=== PATIENT | male | born 1990 | race Caucasian/White ===

== ENCOUNTER 2017-07-04 11:24 | Inpatient (IN) | payer BC, OTHER ==
[~2017-07-04] VITALS: Ht 182.9 cm; Wt 68.0 kg
[2017-07-04 11:40] VITALS: BP 134/81
--- NOTE | 2017-07-04 11:40 | NUR ---
Pre-admission Note: Client is seen in intake at this time. Alert and oriented x 4. Verbally responsive. Able to make his needs known. Affect is flat. Appears anxious with frequent body shifting. Complains of 8/10 abdominal cramps with muscle aches related to withdrawal. Patient states "I feel sick." Re-assurance provided. Patient education provided regarding the admission process. Patient verbalized good understanding. Patient is able to provide consent regarding the admission process. Denies any allergies. Denies any seizure history. He reports that he is here to detox off of heroin and methamphetamine. He denies having a PCP and is currently homeless. Will continue with the admission process when the patient is up in the unit. VS: Temp 98.1 Pulse 110 RR 18 BP 134/81 PL 8/10 O2 sat 98% RA COWS 16
--- NOTE | 2017-07-04 12:10 | NUR ---
Admission Note: Admitted a 26 year old male for opiate/methamphetamine dependence under the care of Dr. Flo Campbell. Patient states that he is voluntarily here to detox off of heroin and methamphetamine. He is alert and verbally responsive. Oriented x 4. No changes in LOC compared to the last time patient was seen. Appears anxious with congruent affect. Respirations even and unlabored. No SOB noted. Lung sounds clear upon auscultation. Runny nose noted r/t withdrawal symptoms. Skin warm and moist to touch. BUE tremors felt and observed. Body search done by male TRACK SERVICE PERSON. No contraband was found. Skin check done. Noted with bilateral forearm trackmarks and lesions due to skin picking. Abdomen soft and non-distended. BS (+) in all 4 quadrants. No complains of diarrhea or constipation noted. LBM 07/04/2017. Noted with complains of 8/10 abdominal cramping and nausea. No emesis noted. Bladder non-distended. Voids independently. Able to provide urine for UDS. Ambulatory ad janes with steady gait. Patient denies any seizure history. Denies any medical hx. NKA. Wishes to be FULL CODE. Follows a regular diet at home. Patient reports that he is currently unemployed and homeless. Denies having a PCP. When asked when his longest period of sobriety is, patient states "I never had one." He reports that he has significant hx of substance abuse in the family where his mother and sister are also suffering from substance dependence. Denies S/I or H/I. Denies any AV hallucinations. Patient reports that he currently does not take any medications from home and his usual s/s of withdrawal are tremors, sweats, abdominal cramps, nausea, and muscle aches. He consented to receive PNA and FLU vaccine. Substance Use: 1. Heroin - since 18 years old. Injects 1 gram intravenously daily x 4 years. Last use was on 07/03/2017 at 1000, 1/2 gram. 2. Methamphetamine - since 18 years old. Injects 1 gram intravenously daily x 4 years. Last use was on 07/03/2017 at 1000, 1/2 gram. 3. Marijuana - since 18 years old. Smokes 2 grams daily x 4 years. Last use was 07/03/2017 at 1000, 2 grams Treatment History: 1. [place] [facility] - 4 years ago x 2 weeks. Orientation to the unit provided. Educated patient on the use of call lights and unit's rules and policies. Patient verbalized good understanding. Dr. Campbell made aware of patient current condition and arrival to the unit. Orders were entered and verified. Patient's 5-day Subutex taper will be started today at 1300. Orders noted and carried out. UDS provided/Lab draw done. Addendum: 07/04/17 at 1352 by ISAAK DIAS LVN Upon interview with the patient while MD Campbell at bedside. Patient revealed that he has history of Hepatitis C.
[2017-07-04] MEDS ORDERED: LORAZEPAM 1 MG TABLET PO PRN (12:30)
[2017-07-04] MEDS ORDERED: ONDANSETRON ODT 4 MG TAB.RAPDIS SL PRN (12:30)
[2017-07-04] MEDS ORDERED: IBUPROFEN 600 MG TABLET PO PRN (12:30)
[2017-07-04] MEDS ORDERED: MAG HYDROX/AL HYDROX/SIMETH 30 ML LIQUID UDC PO PRN (12:30)
[2017-07-04] MEDS ORDERED: CLONIDINE HCL 0.1 MG TABLET PO PRN (12:30)
[2017-07-04] MEDS ORDERED: MAGNESIUM HYDROXIDE 30 ML LIQUID UDC PO PRN (12:30)
[2017-07-04] MEDS ORDERED: diphenhydrAMINE 50 MG CAPSULE PO PRN (12:30)
[2017-07-04] MEDS ORDERED: ONDANSETRON 4 MG/2 ML VIAL IM PRN (12:30)
[2017-07-04] MEDS ORDERED: LOPERAMIDE HCL 2 MG CAPSULE PO PRN ×2 (12:30)
[2017-07-04] MEDS ORDERED: HYDROXYZINE PAMOATE 25 MG CAPSULE PO PRN (12:30)
[2017-07-04] MEDS ORDERED: DICYCLOMINE HCL 20 MG TABLET PO PRN (12:30)
[2017-07-04] MEDS ORDERED: METHOCARBAMOL 750 MG TABLET PO PRN (12:30)
[2017-07-04] MEDS ORDERED: MIRALAX 17 GM POWD.PACK PO PRN (12:30)
[2017-07-04] MEDS ORDERED: ACETAMINOPHEN 325 MG TABLET PO PRN (12:30)
[2017-07-04] MEDS ORDERED: BUPRENORPHINE HCL 2 MG TAB.SUBL SL PRN (12:30)
[2017-07-04] MEDS: BUPRENORPHINE HCL 2 MG TAB.SUBL SL SCH ×3 (12:55→21:00)
--- NOTE | 2017-07-04 12:55 | NUR ---
Taper initiated/Clonidine 0.1mg PO, Robaxin 750mg, Bentyl 20 mg PO, Zofran 4 mg SL given: Patient noted with COWS 16, patient presented with muscle aches, abdominal cramps 8/10, nausea, no emesis noted, chills, sweats and hot flashes. Medicated patient with Clonidine, Bentyl, Robaxin, Zofran and Subutex 4 mg SL per taper orders. Will monitor for effectiveness.
[2017-07-04 12:59] LABS: *AMPHETAMINE, URINE POSITIVE (NEGATIVE); *BARBITURATE, URINE NEGATIVE (NEGATIVE); *CANNABINOID, URINE POSITIVE (NEGATIVE); *COCCAINE, URINE NEGATIVE (NEGATIVE); *OPIATE, URINE POSITIVE (NEGATIVE); *PHENCYCLIDINE SCREEN,URINE NEGATIVE (NEGATIVE)
[2017-07-04 13:29] LABS: RED BLOOD CELL COUNT(AUTO) 5.57 MIL/UL (4.7-6.1)
[2017-07-04 13:32] LABS: BASOPHILS % (AUTO) 0.2 % (0.0-2.0); EOSINOPHILS # (AUTO) 0.2 K/uL (0.0-0.7); EOSINOPHILS % (AUTO) 1.4 % (0.0-7.0); ETHANOL < 3 MG/DL (0-0); HEMATOCRIT 45.3 % (40-50); HEMOGLOBIN 15.3 G/DL (14.0-18.0); LYMPHOCYTES # (AUTO) 1.5 K/UL (0.8-4.8); LYMPHOCYTES % (AUTO) 13.9 % (20.5-51.5); MEAN CORPUSCULAR HEMOGLOBIN 27.5 UUG (27.0-31.0); MEAN CORPUSCULAR HGB CONC 34 g/dL (32.0-37.0); MEAN CORPUSCULAR VOLUME 81.3 FL (82.0-92.0); MONOCYTES # (AUTO) 0.4 K/UL (0.1-1.30); MONOCYTES % (AUTO) 3.4 % (0.0-11.0); NEUTROPHILS # (AUTO) 8.8 K/UL (1.8-8.9); NEUTROPHILS % (AUTO) 81.1 % (38.5-71.5); PLATELET COUNT (AUTO) 386 K/UL (150-450); WHITE BLOOD COUNT (AUTO) 10.9 K/UL (4.0-11.2)
[2017-07-04 13:37] LABS: ALANINE AMINOTRANSFERASE 292 U/L (16-63); ALKALINE PHOSPHATASE 173 U/L (50-136); ASPARTATE AMINOTRANSFERASE 147 U/L (15-37); BILIRUBIN,TOTAL 0.5 mg/dL (0.2-1.0); CARBON DIOXIDE 29 mmol/L (21-32); CHLORIDE 103 mmol/L (98-107); CREATININE 1.1 mg/dL (0.6-1.3); GLUCOSE 164 mg/dL (74-106); MAGNESIUM 2.2 mg/dL (1.8-2.4); POTASSIUM 3.8 mmol/L (3.5-5.1); TOTAL PROTEIN, SERUM 8.2 g/dL (6.4-8.2); UREA NITROGEN, BLOOD 11 mg/dL (7-18)
--- NOTE | 2017-07-04 13:55 | NUR ---
Re-assessment: Patient is sound asleep, easily arousable. RR 16. Breathing even and unlabored. No visible signs of distress noted at this time.
--- NOTE | 2017-07-04 14:10 | NUR ---
MD Communication: Labs Reviewed labs with MD Campbell especially patient's AST/ALT and Globulin level. Per MD, labs are consistent with possible (+) Hep C. Will continue to monitor the patient at this time. NNO made.
[2017-07-04 15:25] LABS: BAND % (MANUAL) 6 % (0-10); LYMPHOCYTES % (MANUAL) 18 % (20-40); MONOCYTES % (MANUAL) 2 % (2-10); NEUTROPHILS % (MANUAL) 74 % (42-75)
[2017-07-04 16:00] VITALS: BP 134/69
--- NOTE | 2017-07-04 18:53 | NUR ---
End of Shift Notes: Patient initiated his 5-day Subutex taper today as ordered. Patient is tolerating taper well. No adverse reactions noted. VS monitored closely. No significant abnormalities noted. Withdrawal symptoms were closely monitored. Initial COWS 16, patient presented with anxiety, agitation, sweats, chills, hot flashes, fatigue, tremors and restlessness. Medicated patient with routine Subutex at 1300 and Robaxin, Bentyl, Zofran as ordered with help after 1 hour. Unable to participate in group today due to his withdrawal symptoms. Compliant with care and treatment. All needs met and attended. Will continue to monitor closely.
--- NOTE | 2017-07-04 19:55 | NUR ---
START OF SHIFT Received report from day shift nurse. Pt is lying in bed resting. He is a 26 yo male admitted to [facility] today for opiate dependence. He is A&O and ambulatory. NKA, full code status, and on a regular diet. He denies any PMH but reports he could be Hepatitis C positive. On admission he reported using heroin 1 gram per day, methamphetamine 1 gram per day and marijuana 2 grams per day. 5 day Subutex taper started today. He reports cold sweats and stomach cramps. Taper due tonight. One time order for Ativan noted. Fall and seizure precautions in place. Bed is down with call light in reach.
[2017-07-04 20:00] VITALS: BP 101/62
[2017-07-04] MEDS ORDERED: LORAZEPAM 1 MG TABLET PO ONE (20:00)
[2017-07-04] MEDS: GABAPENTIN 300 MG CAPSULE PO SCH (21:00)
[2017-07-05] VITALS: BP 113/65
[2017-07-05 04:00] VITALS: BP 99/62
--- NOTE | 2017-07-05 07:15 | NUR ---
END OF SHIFT Report provided to day shift nurse. Pt is lying in bed resting. He is a 26 yo male admitted to [facility] on 07/04 for opiate dependence. He is A&O and ambulatory. NKA, full code status, and on a regular diet. He denies any PMH but reports he could be Hepatitis C positive. On admission he reported using heroin 1 gram per day, methamphetamine 1 gram per day and marijuana 2 grams per day. 5 day Subutex taper started 07/04. One time Ativan administered per orders. COWS was 9 before the Ativan. 2100 medications held for sleep. Pt drank 240mL and slept for 11 hours. Fall and seizure precautions in place.
--- NOTE | 2017-07-05 07:16 | NUR ---
Start of Shift Notes: Received report from night nurse. Patient is in his room. Alert and verbally responsive. Oriented x 4. Able to make his needs known. Respirations even and unlabored. No SOB noted. Skin warm and dry to touch. Abdomen soft and non-distended. BS (+) in all 4 quadrants. No complains of N/V/D or constipation noted. Bladder non-distended. No complains of dysuria noted. Ambulatory ad janes with steady gait. Patient is a 26 year old male admitted for opiate/meth dependence who was placed on a 5-day ASubutex taper as ordered. Has past medical hx of Hep C. No seizure history. Prior to admission, patient was using 1 gram of Heroin, 1 gram of Methamphetamine and 2 grams of marijuana x 4 years. NKA. FULL CODE. Regular diet. On fall and seizure precautions. Educated patient on the current plan of care for the day and the medication regimen. Patient verbalized good understanding. Encouraged oral fluid intake and encouraged group participation to learn new skills to prevent relapse. Will continue to monitor closely.
[2017-07-05 08:00] VITALS: BP 127/77
[2017-07-05] MEDS: GABAPENTIN 300 MG CAPSULE PO SCH ×2 (08:24→21:35)
[2017-07-05] MEDS: BUPRENORPHINE HCL 2 MG TAB.SUBL SL SCH ×3 (08:24→21:35)
[2017-07-05] MEDS ORDERED: INFLUENZA VACCINE 2017-2018 0.5 ML DISP.SYRIN IM ONE (09:00)
[2017-07-05] MEDS ORDERED: TUBERCULIN,PURIF.PROT.DERIV. 5 TU/0.1 ML TEST ID ONE (09:00)
--- NOTE | 2017-07-05 10:45 | NUR ---
Client was prompted to attend daily group sessions. Client expressed that he would attend the next group.
[2017-07-05 12:00] VITALS: BP 131/75
[2017-07-05 15:11] LABS: HEPATITIS B SURFACE AG Negative (Negative)
--- NOTE | 2017-07-05 15:20 | NUR ---
MD Communication: Labs Dr. Campbell made aware of patient's Hep C results of >11.0H. Client revealed to MD that he may have Hep C due to sharing needles.
[2017-07-05 16:00] VITALS: BP 131/69
--- NOTE | 2017-07-05 19:01 | NUR ---
End of Shift Notes: Patient continues to be on 5-day Subutex taper today as ordered. Patient is tolerating taper well. No adverse reactions noted. VS monitored closely. No significant abnormalities noted. Withdrawal symptoms were closely monitored. Initial COWS 6, patient presented with sweats, chills, hot flashes, fatigue, tremors and restlessness. Last COWS 5. Per patient Subutex has been effective in reducing patient's withdrawal symptoms. Flu vaccine given to today. Unable to participate in group today due to his withdrawal symptoms. Compliant with care and treatment. All needs met and attended. Will continue to monitor closely.
--- NOTE | 2017-07-05 19:50 | NUR ---
START OF SHIFT Received report from day shift nurse. Pt is lying in bed resting. He is a 26 yo male admitted to [facility] on 07/04 for opiate dependence. He is A&O and ambulatory. NKA, full code status, and on a regular diet. PMH of Hepatitis C. On admission he reported using heroin 1 gram per day, methamphetamine 1 gram per day and marijuana 2 grams per day. 5 day Subutex taper started 07/04. He reports muscle aches, chills, and is observed with visible sweat on the forehead. Taper due tonight. Fall and seizure precautions in place. Bed is down with call light in reach.
[2017-07-05 20:00] VITALS: BP 146/77
[2017-07-05] MEDS ORDERED: PNEUMOCOCCAL 23-VAL P-SAC VAC 0.5 ML VIAL IM ONE (21:00)
[2017-07-06] VITALS: BP 121/53
--- NOTE | 2017-07-06 | NUR ---
COWS deferred COWS ordered Q4HWA. Pt is lying in bed resting with eyes closed. Respirations even and unlabored. Vital signs obtained. Safety measures in place.
[2017-07-06 04:00] VITALS: BP 132/86
--- NOTE | 2017-07-06 04:00 | NUR ---
0400 COWS deferred COWS ordered Q4HWA. Pt is lying in bed resting with eyes closed. Respirations even and unlabored. Vital signs obtained. Safety measures in place.
--- NOTE | 2017-07-06 07:21 | NUR ---
END OF SHIFT Report provided to day shift nurse. Pt is lying in bed resting. He is a 26 yo male admitted to [facility] today for opiate dependence. He is A&O and ambulatory. NKA, full code status, and on a regular diet. He denies any PMH but reports he could be Hepatitis C positive. On admission he reported using heroin 1 gram per day, methamphetamine 1 gram per day and marijuana 2 grams per day. 5 day Subutex taper started 07/04. He remained in bed throughout the shift. Last COWS 6 before medications. He drank 710mL and slept for 11 hours. Fall and seizure precautions in place. Bed is down with call light in reach.
--- NOTE | 2017-07-06 07:30 | NUR ---
START OF SHIFT NOTE Received report from night nurse, 26 year old male admitted for opiate dependence. Patient denies any PMH but reports he could be Hepatitis C positive. Patient cont on 5 day Subutex taper started today. Per endorsement pt did not receive any PRN. Pt's last COWS score was 6, slept for 11 hours. Patient received awake, alert and oriented x4, Educated patient regarding plan of care for the day and medication regimen with good verbal understanding. Safety measures in place. call light with in reach, will continue to monitor.
[2017-07-06 08:00] VITALS: BP 122/70
[2017-07-06] MEDS: GABAPENTIN 300 MG CAPSULE PO SCH ×3 (08:33→21:02)
[2017-07-06] MEDS ORDERED: BUPRENORPHINE HCL 2 MG TAB.SUBL SL SCH (09:00)
[2017-07-06 12:00] VITALS: BP 138/63
[2017-07-06] MEDS: BACLOFEN 10 MG TABLET PO SCH ×2 (15:05→21:03)
[2017-07-06] MEDS: BUPRENORPHINE HCL 2 MG TAB.SUBL SL SCH ×2 (15:06→21:03)
[2017-07-06 16:00] VITALS: BP 117/84
--- NOTE | 2017-07-06 19:10 | NUR ---
END OF SHIFT NOTE Patient is alert oriented x4. Patient is a 26 year old male admitted for opiate dependence. Patient denies any PMH but reports he could be Hepatitis C positive. Patient cont on 5 day Subutex taper tolerating well. Patient did not receive any PRN medication during shift Vital signs remained WNL. Patient remained compliant with treatment plan and medication regime. Medications were effective in reducing withdrawal symptoms. Last COWS score noted 5, at 1600. All safety measures in place, Call light within reach. Patient endorsed to night nurse in stable condition.
--- NOTE | 2017-07-06 19:40 | NUR ---
START OF SHIFT Received report from day shift nurse. Pt is lying in bed resting. He is a 26 yo male admitted to [facility] on 07/04 for opiate dependence. He is A&O x3 and ambulatory. NKA, full code status, and on a regular diet. PMH of Hepatitis C. On admission he reported using heroin 1 gram per day, methamphetamine 1 gram per day and marijuana 2 grams per day. 5 day Subutex taper started 07/04. Subutex is working well to manage symptoms. He reports feeling tired and wanting to rest. Taper due tonight. Fall and seizure precautions in place. Bed is down with call light in reach.
[2017-07-06 20:00] VITALS: BP 108/76
[2017-07-06] MEDS: CLONIDINE HCL 0.1 MG TABLET PO SCH (21:03)
[2017-07-07] VITALS: BP 120/63
--- NOTE | 2017-07-07 | NUR ---
COWS deferred COWS ordered Q4HWA. Pt is lying in bed resting with eyes closed. Respirations even and unlabored. Vital signs obtained. Safety measures in place.
--- NOTE | 2017-07-07 04:00 | NUR ---
0400 Vitals refused/COWS deferred Pt refused to be woken for 0400 vitals. He is lying in bed resting with eyes closed. Respirations even and unlabored. COWS ordered Q4HWA. Safety measures in place.
--- NOTE | 2017-07-07 07:10 | NUR ---
END OF SHIFT Report provided to day shift nurse. Pt is lying in bed resting. He is a 26 yo male admitted to [facility] on 07/04 for opiate dependence. He is A&O and ambulatory. NKA, full code status, and on a regular diet. PMH of Hepatitis C. On admission he reported using heroin 1 gram per day, methamphetamine 1 gram per day and marijuana 2 grams per day. 5 day Subutex taper started 07/04. Pt is compliant with treatment. Taper is working well to manage withdrawal symptoms. No PRN medications administered. Last COWS 4 before night medications. He drank 500mL and slept for 10 hours. Taper due tonight. Fall and seizure precautions in place. Bed is down with call light in reach.
--- NOTE | 2017-07-07 07:40 | NUR ---
START OF SHIFT NOTE Received report from night nurse, 26 year old male admitted for opiate dependence. Patient denies any PMH but reports he could be Hepatitis C positive. Patient cont on 5 day Subutex taper. Per endorsement pt did not receive any PRN. Pt's last COWS score was 4, slept for 10 hours. Patient received awake, alert and oriented x4, Educated patient regarding plan of care for the day and medication regimen with good verbal understanding. Safety measures in place. call light with in reach, will continue to monitor.
[2017-07-07 08:00] VITALS: BP 116/71
[2017-07-07] MEDS: BACLOFEN 10 MG TABLET PO SCH ×3 (08:22→21:09)
[2017-07-07] MEDS: GABAPENTIN 300 MG CAPSULE PO SCH ×3 (08:22→21:09)
[2017-07-07] MEDS: BUPRENORPHINE HCL 2 MG TAB.SUBL SL SCH ×3 (08:22→21:10)
[2017-07-07] MEDS: CLONIDINE HCL 0.1 MG TABLET PO SCH ×2 (08:23→21:09)
--- NOTE | 2017-07-07 10:33 | NUR ---
Therapist prompted client to attend group today. Client agreed to attend.
[2017-07-07 12:00] VITALS: BP 131/74
[2017-07-07 16:00] VITALS: BP 146/81
--- NOTE | 2017-07-07 19:09 | NUR ---
END OF SHIFT NOTE Patient is alert oriented x4. Patient is a 26 year old male admitted for opiate dependence. Patient denies any PMH but reports he could be Hepatitis C positive. Patient cont on 5 day Subutex taper tolerating well. Patient did not receive any PRN medication during shift Vital signs remained WNL. Patient remained compliant with treatment plan and medication regime. Medications were effective in reducing withdrawal symptoms. Patient attended groups and activities. Last COWS score noted 5, at 1600. All safety measures in place, Call light within reach. Patient endorsed to night nurse in stable condition.
--- NOTE | 2017-07-07 19:45 | NUR ---
START OF SHIFT Received report from day shift nurse. Pt is lying in bed resting. He is a 26 yo male admitted to [facility] on 07/04 for opiate dependence. He is A&O x3 and ambulatory. NKA, full code status, and on a regular diet. PMH of Hepatitis C. On admission he reported using heroin 1 gram per day, methamphetamine 1 gram per day and marijuana 2 grams per day. 5 day Subutex taper started 07/04. He reports hot and cold flashes and feeling tired. Fall and seizure precautions in place. Bed is down with call light in reach.
[2017-07-07 20:00] VITALS: BP 130/67
--- NOTE | 2017-07-08 | NUR ---
0000 Vitals refused/COWS deferred Pt refused to be woken for 0400 vitals. He is lying in bed resting with eyes closed. Respirations even and unlabored. COWS ordered Q4HWA. Safety measures in place. Addendum: 07/08/17 at 0505 by OSCAR CARROLL RN Correction: Pt refused to be woken for 0000 vitals.
--- NOTE | 2017-07-08 07:23 | NUR ---
END OF SHIFT Report provided to day shift nurse. Pt is lying in bed resting. He is a 26 yo male admitted to [facility] on 07/04 for opiate dependence. He is A&O x3 and ambulatory. NKA, full code status, and on a regular diet. PMH of Hepatitis C. On admission he reported using heroin 1 gram per day, methamphetamine 1 gram per day and marijuana 2 grams per day. 5 day Subutex taper started 07/04. Medications are working well to manage withdrawal symptoms. No PRN medications administered. Last COWS was 3 before 2100 medications. He drank 291mL and slept for 10 hours. Fall and seizure precautions in place. Bed is down with call light in reach.
--- NOTE | 2017-07-08 07:40 | NUR ---
START OF SHIFT NOTE Received report from night nurse, 26 year old male admitted for opiate dependence. Patient denies any PMH but reports he could be Hepatitis C positive. Patient cont on 5 day Subutex taper. Per endorsement pt did not receive any PRN. Pt's last COWS score was 3, slept for 10 hours. Patient received awake, alert and oriented x4, Educated patient regarding plan of care for the day and medication regimen with good verbal understanding. Safety measures in place. call light with in reach, will continue to monitor.
[2017-07-08 08:00] VITALS: BP 108/78
[2017-07-08] MEDS: BACLOFEN 10 MG TABLET PO SCH (08:26)
[2017-07-08] MEDS: CLONIDINE HCL 0.1 MG TABLET PO SCH ×2 (08:26→20:48)
[2017-07-08] MEDS: GABAPENTIN 300 MG CAPSULE PO SCH ×3 (08:26→20:47)
[2017-07-08] MEDS ORDERED: BUPRENORPHINE HCL 2 MG TAB.SUBL SL SCH (09:00)
[2017-07-08 12:00] VITALS: BP 97/62
[2017-07-08] MEDS ORDERED: DIPH50CA37 PO (12:53)
[2017-07-08] MEDS ORDERED: METH-406 PO (12:53)
[2017-07-08] MEDS ORDERED: DICY20TA28 PO (12:53)
[2017-07-08] MEDS ORDERED: CLON0.1T14 PO (12:53)
[2017-07-08] MEDS ORDERED: IBUP-1955 PO (12:53)
[2017-07-08] MEDS ORDERED: GABA-534 PO (12:53)
[2017-07-08] MEDS ORDERED: HYDR-3895 PO (12:53)
[2017-07-08] MEDS: DICYCLOMINE HCL 20 MG TABLET PO SCH ×2 (14:14→20:47)
[2017-07-08 16:00] VITALS: BP 137/88
--- NOTE | 2017-07-08 19:02 | NUR ---
END OF SHIFT NOTE Patient is alert oriented x4. Patient is a 26 year old male admitted for opiate dependence. Patient denies any PMH but reports he could be Hepatitis C positive. Patient cont on 5 day Subutex taper tolerating well. Patient did not receive any PRN medication during shift Vital signs remained WNL. Patient remained compliant with treatment plan and medication regime. Medications were effective in reducing withdrawal symptoms. Patient attended groups and activities. Last COWS score noted 3, at 1600. Patient scheduled for discharge in AM. All safety measures in place, Call light within reach. Patient endorsed to night nurse in stable condition. Addendum: 07/08/17 at 1918 by TORREY BUTT LVN Patient completed his Subutex taper tolerated well.
--- NOTE | 2017-07-08 19:30 | NUR ---
start of shift note Patient is a 26 year old male admitted to [facility] on 07-04-17 for opiate detox. He has completed a 5 day subutex taper. He is a full code, regular diet, and has NKA. He is on fall and seizure precautions. Patient has PMH of hepatitis C. Last COWS 3 at 1600. VSS. No physical complaints offered. Patient in bed asleep at change of shift. Report received from AM nurse.
[2017-07-08 20:00] VITALS: BP 127/64
--- NOTE | 2017-07-09 | NUR ---
vital signs refused. 0000 Vital signs refused. COWS deferred for sleep.
--- NOTE | 2017-07-09 04:00 | NUR ---
vital signs refused. 0400 Vital signs refused. COWS deferred for sleep.
--- NOTE | 2017-07-09 06:46 | NUR ---
End of shift Patient is a 26 year old male admitted to [facility] on 07-04-17 for opiate detox. He has completed a 5 day subutex taper. He is a full code, regular diet, and has NKA. He is on fall and seizure precautions. Patient has PMH of hepatitis C. VS at 1999 BP 127/64, P 80, R 16, SPO2 99% on RA, T 98.2. COWS 2. No physical complaints offered. change of shift. Patient slept a total of 10 hours. Intake 250 ml output 1 void. Safety measures in place . Bed locked and in lowest position. 2 side rails up for safety. Report given to AM nurse.
--- NOTE | 2017-07-09 07:30 | NUR ---
START OF SHIFT pT 26 y/o male admitted for opiate/ methamphetamine dependence. Pt received in room on bed with eyes closed resting, but easily arousable to name. Pt alert and oriented to name, place, and time. Perrla. Skin warm and dry to touch. Respirations even and unlabored. It was reported that pt slept for 10 hours last night. Pt is scheduled to bed discharged today. Bed on lowest position with side rails x2 up for safety. Call light within reach. No distress noted at this time.
[2017-07-09] MEDS: GABAPENTIN 300 MG CAPSULE PO SCH (08:16)
[2017-07-09] MEDS: DICYCLOMINE HCL 20 MG TABLET PO SCH (08:16)
[2017-07-09 08:17] VITALS: BP 109/64
[2017-07-09] MEDS: CLONIDINE HCL 0.1 MG TABLET PO SCH (08:17)
--- NOTE | 2017-07-09 09:05 | NUR ---
DISCHARGE pT 26 y/o male admitted for opiate/ methamphetamine dependence. Pt alert and oriented to name, place, and time. Perrla. Skin warm and dry to touch. Respirations even and unlabored. It was reported that pt slept for 10 hours last night. Pt discharged to [facility] via private transport. No belongings noted in cabinet or cassette. Pt states he did not bring any home medications. All discharge papers and belongings packed in pt bag. VS wnl. No distress noted at this time.
== END 2017-07-09 09:04 | disposition other institution (70) | DRG 895 ==
LOC: SRC 11:24
PROVIDERS: ADMIT Internal Medicine; ATTEND Internal Medicine
PROC: HZ2ZZZZ Detoxification Services for Substance Abuse Treatment (ICD-10-PCS; principal; 2017-07-04)
PROC: HZ31ZZZ Individual Counseling for Substance Abuse Treatment, Behavioral (ICD-10-PCS; 2017-07-05)
PROC: HZ41ZZZ Group Counseling for Substance Abuse Treatment, Behavioral (ICD-10-PCS; 2017-07-07)
DX: F11.23 Opioid dependence with withdrawal (principal); I15.9 Secondary hypertension, unspecified; B18.2 Chronic viral hepatitis C; F12.10 Cannabis abuse, uncomplicated; F17.210 Nicotine dependence, cigarettes, uncomplicated; Z59.0 Homelessness; Z59.1 Inadequate housing; F15.23 Other stimulant dependence with withdrawal; Z91.89 Other specified personal risk factors, not elsewhere classified; R74.0 Nonspecific elevation of levels of transaminase and lactic acid dehydrogenase [LDH]; R73.9 Hyperglycemia, unspecified
CPT/HCPCS: 36415; 70030-TC; 80307; 80324; 80349; 80361; 83735; 85025; 86580; 86592; 86705; 86803; 87340; 87806; 90686; G0480; Q0162